=== PATIENT | female | born 1950 | race Caucasian/White ===

== ENCOUNTER 2024-09-20 13:32 | Inpatient (IN) | payer MEDICARE ==
[~2024-09-20] VITALS: Ht 165.1 cm; Wt 61.2 kg
[2024-09-20 14:06] LABS: BASOPHILS % (AUTO) 0.3 % (0.0-2.0); HEMATOCRIT 35 % (33-45); HEMOGLOBIN 11.8 g/dL (11.5-14.8); LYMPHOCYTES # (AUTO) 0.6 K/uL (0.8-4.8); LYMPHOCYTES % (AUTO) 14.1 % (20.0-44.0); MEAN CORPUSCULAR HEMOGLOBIN 29 PG (26.0-33.0); MEAN CORPUSCULAR HGB CONC 34 g/dl (31.0-36.0); MEAN CORPUSCULAR VOLUME 86 fL (82-100); MONOCYTES # (AUTO) 0.2 K/uL (0.1-1.30); NEUTROPHILS # (AUTO) 3.7 K/uL (1.8-8.9); NEUTROPHILS % (AUTO) 80.6 % (43.0-81.0); PLATELET COUNT (AUTO) 251 K/uL (150-450); RED BLOOD CELL COUNT(AUTO) 4.11 MIL/uL (4.0-5.2); RED CELL DISTRIBUTION WIDTH 13.7 % (11.5-15.0); WHITE BLOOD COUNT (AUTO) 4.6 K/uL (4.3-11.0)
[2024-09-20 14:10] LABS: CALCIUM, SERUM 9.2 mg/dL (8.5-10.1); CARBON DIOXIDE 24 mmol/L (21-32); CHLORIDE 107 mmol/L (98-107); CREATININE 1.2 mg/dL (0.6-1.3); GLUCOSE 91 mg/dL (74-106); SODIUM SERUM 140 mmol/L (136-145); UREA NITROGEN, BLOOD 27 mg/dL (7-18)
[2024-09-20 14:16] LABS: ALANINE AMINOTRANSFERASE 18 U/L (12-78); ALBUMIN 3.4 g/dL (3.4-5.0); ALCOHOL, BLOOD < 3 mg/dL (0-10); ALKALINE PHOSPHATASE 160 U/L (46-116); ASPARTATE AMINOTRANSFERASE 17 U/L (15-37); BILIRUBIN,DIRECT 0.1 mg/dL (0.0-0.2); BILIRUBIN,TOTAL 0.4 mg/dL (0.2-1.0); SALICYLATE 1.1 mg/dL (2.8-20.0); TOTAL PROTEIN, SERUM 6.7 g/dL (6.4-8.2)
[2024-09-20 14:17] LABS: ACETAMINOPHEN <10 ug/ml (10-30)
[2024-09-20] MEDS ORDERED: LORAZEPAM 0.5 MG TABLET ONE (16:02)
[2024-09-20] MEDS: LORAZEPAM 1 MG TABLET PO ONE (16:04)
[2024-09-20 16:47] LABS: APPEARANCE,URINE CLEAR (CLEAR); BILIRUBIN,URINE Negative (NEGATIVE); BLOOD, URINE Negative Ery/uL (NEGATIVE); COLOR,URINE YELLOW (YELLOW); KETONES,URINE Negative (NEGATIVE); LEUKOCYTE ESTERASE ,URINE Trace (NEGATIVE); PROTEIN,URINE Negative (NEGATIVE); UGLUCOSE Negative (NEGATIVE); UROBILINOGEN,URINE 0.2 EU/dL (0.2)
[2024-09-20 16:48] LABS: NITRITE, URINE NEGATIVE (NEGATIVE); RBC,URINE 0-2 /HPF (0-2)
[2024-09-20 16:49] LABS: ADD URINE CULTURE NO; BACTERIA,URINE Few /HPF (None Seen); SQUAMOUS EPITHELIAL CELL,UR Few /HPF (None Seen)
[2024-09-20 17:10] LABS: AMPHETAMINE, URINE NEGATIVE (NEGATIVE); BARBITURATE, URINE NEGATIVE (NEGATIVE); BENZODIAZEPINE, URINE NEGATIVE (NEGATIVE); CANNABINOID, URINE NEGATIVE (NEGATIVE); COCCAINE, URINE NEGATIVE (NEGATIVE); OPIATE, URINE NEGATIVE (NEGATIVE); PHENCYCLIDINE SCREEN,URINE NEGATIVE (NEGATIVE)
[2024-09-20] MEDS ORDERED: ARIP5TAB59 PO (17:19)
[2024-09-20] MEDS ORDERED: LORA-258 PO (17:19)
[2024-09-20] MEDS ORDERED: AMLO2.5T4 PO (17:19)
[2024-09-20] MEDS ORDERED: ASPI-992 PO (17:19)
[2024-09-20] MEDS ORDERED: LAMO25TA10 PO (17:19)
[2024-09-20] MEDS ORDERED: CHOL4PAC2 PO (17:19)
[2024-09-20] MEDS ORDERED: URSO300C12 PO (17:19)
[2024-09-20] MEDS ORDERED: MIRT-90 PO (17:19)
[2024-09-20] MEDS ORDERED: FERR325T24 PO (17:19)
[2024-09-20] MEDS ORDERED: QUET50TA PO (17:19)
[2024-09-20] MEDS ORDERED: TRAZ150T75 PO (17:19)
[2024-09-20] MEDS: BLOOD SUGAR DIAGNOSTIC 1 EACH STRIP IN ONE (20:58)
[2024-09-20] MEDS ORDERED: LORAZEPAM 0.5 MG TABLET PO PRN (21:00)
[2024-09-20] MEDS ORDERED: ACETAMINOPHEN 325 MG TABLET PO PRN ×2 (21:00)
[2024-09-20] MEDS ORDERED: MAG HYDROX/AL HYDROX/SIMETH 30 ML UDC PO PRN (21:00)
[2024-09-20] MEDS ORDERED: MAGNESIUM HYDROXIDE 30 ML UDC PO PRN ×2 (21:00)
[2024-09-20] MEDS ORDERED: BLOOD SUGAR DIAGNOSTIC 1 EACH STRIP IN ONE (21:00)
[2024-09-20] MEDS ORDERED: ZOLPIDEM TARTRATE 5 MG TABLET PO PRN ×3 (21:00)
[2024-09-20] MEDS ORDERED: LORAZEPAM 1 MG TABLET PO PRN ×2 (21:00)
[2024-09-20] MEDS: ASPIRIN 325 MG TABLET PO SCH (21:27)
[2024-09-20] MEDS: URSODIOL 300 MG CAPSULE PO SCH (21:27)
[2024-09-20] MEDS: ZOLPIDEM TARTRATE 5 MG TABLET PO PRN (21:28)
[2024-09-21 04:10] VITALS: BP 129/68; TEMP 98.1; O2SAT 99
[2024-09-21 06:23] VITALS: BP 150/93; TEMP 98.1; O2SAT 99
[2024-09-21 07:56] LABS: ALBUMIN 3.2 g/dL (3.4-5.0); BILIRUBIN,TOTAL 0.4 mg/dL (0.2-1.0); CALCIUM, SERUM 9.7 mg/dL (8.5-10.1); POTASSIUM 4.3 mmol/L (3.5-5.1); TOTAL PROTEIN, SERUM 6.4 g/dL (6.4-8.2)
[2024-09-21 07:58] LABS: CHOLESTEROL 203 mg/dL (<200); HDL CHOLESTEROL 65 mg/dL (40-60); LDL 112 mg/dL (0-99); TRIGLYCERIDES 87 mg/dL (30-150)
[2024-09-21 08:00] VITALS: BP 113/66; TEMP 97.7; O2SAT 97
[2024-09-21] MEDS: AMLODIPINE BESYLATE 2.5 MG TABLET PO SCH (08:45)
[2024-09-21] MEDS: FERROUS SULFATE (325 MG) 325 MG/TAB TABLET PO SCH (08:45)
[2024-09-21] MEDS: CHOLESTYRAMINE/ASPARTAME 4 G/PKT PACKET PO SCH (08:46)
[2024-09-21] MEDS: LORAZEPAM 0.5 MG TABLET PO PRN (13:07)
[2024-09-21 16:00] VITALS: BP 103/74; TEMP 97.7; O2SAT 99
[2024-09-21] MEDS: QUETIAPINE FUMARATE 25 MG TABLET PO SCH ×2 (16:59→21:31)
[2024-09-21] MEDS: DIVALPROEX SODIUM 125 MG CAP.SPRINK PO SCH (21:30)
[2024-09-22 08:00] VITALS: BP 135/67; TEMP 97.5; O2SAT 100
[2024-09-22 16:00] VITALS: BP 118/76; TEMP 98.4; O2SAT 96
[2024-09-22 20:00] VITALS: BP 126/76; TEMP 98.4; O2SAT 98
[2024-09-23 08:00] VITALS: BP 125/68; TEMP 97.7; O2SAT 98
[2024-09-23 16:00] VITALS: BP 128/81; TEMP 98; O2SAT 100
[2024-09-23 20:29] VITALS: BP 121/80; TEMP 98; O2SAT 98
[2024-09-24 08:00] VITALS: BP 118/60; TEMP 97.9; O2SAT 99
[2024-09-24 16:00] VITALS: BP 125/61; TEMP 98; O2SAT 99
[2024-09-24 20:48] VITALS: BP 149/85; TEMP 98.1; O2SAT 99
[2024-09-25 08:28] VITALS: BP 147/92; TEMP 97.7; O2SAT 97
[2024-09-25 17:00] VITALS: BP 133/80; TEMP 98.6; O2SAT 98
[2024-09-25 20:52] VITALS: BP 120/65; TEMP 98.3; O2SAT 100
[2024-09-26 08:00] VITALS: BP 108/77; TEMP 97.7; O2SAT 98
[2024-09-26 16:00] VITALS: BP 120/87; TEMP 98.1; O2SAT 99
[2024-09-26 19:38] VITALS: BP 98/83; TEMP 98.1; O2SAT 98
[2024-09-26] MEDS: DIVALPROEX SODIUM 125 MG CAP.SPRINK PO SCH (21:12)
[2024-09-27 08:00] VITALS: BP 130/73; TEMP 97.8; O2SAT 98
[2024-09-27 16:00] VITALS: BP 119/78; TEMP 97.8; O2SAT 97
[2024-09-27] MEDS: MAG HYDROX/AL HYDROX/SIMETH 30 ML UDC PO PRN (19:00)
[2024-09-27 20:00] VITALS: BP_SYST 121; BP_DIAS 74; BP_DIAS 75; TEMP 97.8; O2SAT 98
[2024-09-28 08:00] VITALS: BP 116/98; TEMP 97.8; O2SAT 98
[2024-09-28 16:00] VITALS: BP 119/63; TEMP 97.8; O2SAT 97
[2024-09-28 20:00] VITALS: BP 111/64; TEMP 98.1; O2SAT 98
[2024-09-29 08:00] VITALS: BP 129/78; TEMP 97.7; O2SAT 99
[2024-09-29 16:00] VITALS: BP 125/57; TEMP 97.9; O2SAT 95
[2024-09-29 20:18] VITALS: BP 136/90; TEMP 98.1; O2SAT 99
[2024-09-30 08:00] VITALS: BP 127/57; TEMP 97.9; O2SAT 97
[2024-09-30 16:00] VITALS: BP 132/51; TEMP 98; O2SAT 96
[2024-09-30 20:40] VITALS: BP 125/71; TEMP 97.7; O2SAT 99
[2024-10-01 08:45] VITALS: BP 121/64; TEMP 97.8; O2SAT 96
[2024-10-01 16:00] VITALS: BP 123/70; TEMP 98; O2SAT 96
[2024-10-01 20:45] VITALS: BP 124/70; TEMP 97.7; O2SAT 100
[2024-10-02 08:00] VITALS: BP 119/57; TEMP 97.8; O2SAT 99
[2024-10-02] MEDS: DIVALPROEX SODIUM 125 MG CAP.SPRINK PO SCH (12:23)
[2024-10-02 16:00] VITALS: BP 114/60; TEMP 97.5; O2SAT 98
[2024-10-02 20:00] VITALS: BP 117/71; TEMP 97.5; O2SAT 98
[2024-10-02] MEDS: Z GUARD REMEDY 4 OZ OINT TP SCH (21:17)
[2024-10-03 08:00] VITALS: BP 116/63; TEMP 97.8; O2SAT 97
[2024-10-03 16:21] VITALS: BP 119/75; TEMP 98.6; O2SAT 97
[2024-10-03 21:29] VITALS: BP 115/62; TEMP 98.5; O2SAT 98
[2024-10-04 08:00] VITALS: BP 132/57; TEMP 97.8; O2SAT 96
[2024-10-04 08:20] VITALS: BP 132/57
[2024-10-04 10:56] LABS: APPEARANCE,URINE CLEAR (CLEAR); BILIRUBIN,URINE NEGATIVE (NEGATIVE); BLOOD, URINE NEGATIVE Ery/uL (NEGATIVE); COLOR,URINE YELLOW (YELLOW); KETONES,URINE NEGATIVE (NEGATIVE); LEUKOCYTE ESTERASE ,URINE 1+ (NEGATIVE); NITRITE, URINE NEGATIVE (NEGATIVE); PROTEIN,URINE NEGATIVE (NEGATIVE); UGLUCOSE NEGATIVE (NEGATIVE); UROBILINOGEN,URINE 0.2 EU/dL (0.2)
[2024-10-04 10:58] LABS: ADD URINE CULTURE YES; BACTERIA,URINE Few /HPF (None Seen); MUCUS,URINE Rare /LPF (None Seen); RBC,URINE 0-2 /HPF (0-2); SQUAMOUS EPITHELIAL CELL,UR 0-2 /HPF (None Seen)
[2024-10-04] MEDS ORDERED: CEPHALEXIN MONOHYDRATE 500 MG CAPSULE PO SCH (11:30)
[2024-10-04] MEDS ORDERED: CEPH-570 PO (13:34)
== END 2024-10-04 11:20 | DRG 885 ==
LOC: ER 13:46 → GPS 19:20
PROVIDERS: ADMIT Psychiatry & Neurology Psychiatry; ATTEND Nurse Practitioner Acute Care
DX: F31.5 Bipolar disorder, current episode depressed, severe, with psychotic features (principal); F02.83 Dementia in other diseases classified elsewhere, unspecified severity, with mood disturbance; F02.811 Dementia in other diseases classified elsewhere, unspecified severity, with agitation; F02.84 Dementia in other diseases classified elsewhere, unspecified severity, with anxiety; F02.82 Dementia in other diseases classified elsewhere, unspecified severity, with psychotic disturbance; N39.0 Urinary tract infection, site not specified; F29 Unspecified psychosis not due to a substance or known physiological condition; G30.9 Alzheimer's disease, unspecified; K58.9 Irritable bowel syndrome, unspecified; I10 Essential (primary) hypertension; Z79.899 Other long term (current) drug therapy; Z91.199 Patient's noncompliance with other medical treatment and regimen due to unspecified reason; Z73.6 Limitation of activities due to disability; F39 Unspecified mood [affective] disorder; F41.9 Anxiety disorder, unspecified; R79.89 Other specified abnormal findings of blood chemistry; Z79.82 Long term (current) use of aspirin
CPT/HCPCS: 36415; 71045-TC; 80048-TC; 80053-TC; 80061-TC; 80076-TC; 80164-TC; 81001; 82962-TC; 85025-TC; 87086-TC; 92526; 92611-TC; 97110-TC; 97112-TC; 97116-TC; 97530-TC; G0480